=== PATIENT | female | born 1955 | race Caucasian/White ===

== ENCOUNTER 2018-10-09 08:35 | Day surgery (SDC) | payer BC ==
[2018-10-09] MEDS ORDERED: PROPOFOL 200 MG INJ (10:30)
[2018-10-09] MEDS ORDERED: LIDOCAINE 2% (SDV) 5 ML INJ (10:30)
[2018-10-09] MEDS: LIDOCAINE 1% (STERILE-PAK) 30 ML INJ (11:13)
[2018-10-09] MEDS: METHYLPREDNISOLONE ACET 80 MG/ML 1 ML (11:16)
== END 2018-10-09 12:06 | disposition home or self-care (01) ==
LOC: SDS 08:35
DX: M48.061 Spinal stenosis, lumbar region without neurogenic claudication (principal); E78.5 Hyperlipidemia, unspecified; I10 Essential (primary) hypertension
CPT/HCPCS: 62323; 72020; 82962

== ENCOUNTER 2019-01-30 08:27 | Day surgery (SDC) | payer BC ==
[2019-01-30] MEDS ORDERED: PROPOFOL 60 ML (09:22)
[2019-01-30] MEDS ORDERED: LIDOCAINE 2% (SDV) 5 ML INJ (09:23)
[2019-01-30] MEDS ORDERED: ONDANSETRON 4 MG INJ IV (09:30)
[2019-01-30] MEDS ORDERED: HYDROmorphONE 1 MG/5 ML IV SYRINGE IV (09:30)
[2019-01-30] MEDS ORDERED: hydrALAzine 20 MG INJ IV (09:30)
[2019-01-30] MEDS ORDERED: LABETALOL HCL 20MG INJ IV (09:30)
== END 2019-01-30 15:36 | disposition home or self-care (01) ==
LOC: GIL 08:27
DX: Z12.11 Encounter for screening for malignant neoplasm of colon (principal); K29.50 Unspecified chronic gastritis without bleeding; K64.4 Residual hemorrhoidal skin tags; E11.9 Type 2 diabetes mellitus without complications; E78.5 Hyperlipidemia, unspecified; I10 Essential (primary) hypertension
CPT/HCPCS: 43239; 82962; 88305; 88312

== ENCOUNTER 2019-02-18 11:21 | Day surgery (SDC) | payer BC ==
[2019-02-18 12:22] LABS: ADD MAN DIFF? NO
[2019-02-18 12:24] LABS: WHITE BLOOD COUNT 6.5 10^3/ul (4.8-10.8)
[2019-02-18 12:24] LABS: BASOPHIL # 0.1 10^3/ul (0.0-0.1); BASOPHILS % 0.9 % (0.0-2.0); EOSINOPHILS # 0.1 10^3/ul (0.0-0.5); EOSINOPHILS % 1.9 % (0.0-7.0); HEMATOCRIT 40.2 % (37.0-47.0); HEMOGLOBIN 13.2 g/dl (12.0-16.0); LYMPHOCYTES # 2.4 10^3/ul (0.8-2.9); LYMPHOCYTES % 36.5 % (15.0-51.0); MEAN CORPUSCULAR HEMOGLOBIN 28.8 pg (29.0-33.0); MEAN CORPUSCULAR HGB CONC 32.8 g/dl (32.0-37.0); MEAN CORPUSCULAR VOLUME 87.6 fl (82.0-101.0); MEAN PLATELET VOLUME 9.7 fl (7.4-10.4); MONOCYTE # 0.5 10^3/ul (0.3-0.9); NEUTROPHIL # 3.5 10^3/ul (1.6-7.5); NEUTROPHILS % 53.4 % (39.0-77.0); PLATELET COUNT 245 10^3/UL (140-415); RED BLOOD COUNT 4.59 10^6/ul (4.20-5.40); RED CELL DISTRIBUTION WIDTH 12.5 % (11.5-14.5)
[2019-02-18 12:43] LABS: PROTIME 13.3 Sec (11.9-14.9)
[2019-02-18 12:44] LABS: PARTIAL THROMBOPLASTIN TIME 28.6 Sec (23.0-35.0)
[2019-02-18 12:49] LABS: ALANINE AMINOTRANSFERASE 18 IU/L (13-69); ALBUMIN 4.3 g/dl (3.3-4.9); ALBUMIN/GLOBULIN RATIO 1.19; ALKALINE PHOSPHATASE 85 IU/L (42-121); ANION GAP 7 (5-13); ASPARTATE AMINO TRANSFERASE 30 IU/L (15-46); BILIRUBIN,INDIRECT 0.5 mg/dl (0-1.1); BILIRUBIN,TOTAL 0.5 mg/dl (0.2-1.3); BLOOD UREA NITROGEN 17 mg/dl (7-20); CALCIUM 9.3 mg/dl (8.4-10.2); CARBON DIOXIDE 27 mmol/L (21-31); CHLORIDE 108 mmol/L (97-110); CREATININE 0.47 mg/dl (0.44-1.00); Estimated GFR > 60 mL/min (>60); GLUCOSE 117 mg/dl (70-220); SODIUM 142 mmol/L (135-144); TOTAL PROTEIN 7.9 g/dl (6.1-8.1)
[2019-02-18] MEDS ORDERED: ALBUTEROL 0.083% (NEB) 2.5 MG/3 ML AMP HHN (13:30)
[2019-02-18] MEDS ORDERED: hydrALAzine 20 MG INJ IV (13:30)
[2019-02-18] MEDS ORDERED: DIPHENHYDRAMINE 50 MG INJ IV (13:30)
[2019-02-18] MEDS ORDERED: MEPERIDINE 25 MG INJ IV (13:30)
[2019-02-18] MEDS ORDERED: LABETALOL HCL 20MG INJ IV (13:30)
[2019-02-18] MEDS ORDERED: MIDAZOLAM 1 MG/ML 2 ML INJ IV (13:30)
[2019-02-18] MEDS ORDERED: ONDANSETRON 4 MG INJ IV (13:30)
[2019-02-18] MEDS ORDERED: FENTAnyl 50 MCG/ML VIAL IV ×3 (13:30)
[2019-02-18] MEDS ORDERED: OXYCODONE/ACETAMINOPHEN (5/325) TAB PO ×2 (13:30)
[2019-02-18] MEDS ORDERED: EPHEDrine SULFATE 50 MG/5 ML SYG IV (13:30)
[2019-02-18] MEDS ORDERED: TRIMETHOBENZAMIDE 100 MG/ML VIAL IM (13:30)
[2019-02-18] MEDS ORDERED: HYDROmorphONE 1 MG/5 ML IV SYRINGE IV ×3 (13:30)
[2019-02-18] MEDS ORDERED: IPRATROPIUM (NEB) 0.5 MG/2.5 ML AMP HHN (13:30)
[2019-02-18] MEDS ORDERED: MIDAZOLAM 1 MG/ML 2 ML INJ (13:54)
[2019-02-18] MEDS ORDERED: PROPOFOL 20 ML (13:54)
[2019-02-18] MEDS: LIDOCAINE 1% (MPF) 30 ML INJ (14:00)
[2019-02-18] MEDS: METHYLPREDNISOLONE ACET 40 MG/ML 1 ML INJ (14:00)
[2019-02-18] MEDS ORDERED: METHYLPREDNISOLONE ACET 40 MG/ML 1 ML INJ (14:00)
[2019-02-18] MEDS: METHYLPREDNISOLONE ACET 40 MG/ML 5 ML INJ (14:00)
== END 2019-02-18 15:11 | disposition home or self-care (01) ==
LOC: SDS 11:21
DX: M48.061 Spinal stenosis, lumbar region without neurogenic claudication (principal); M54.16 Radiculopathy, lumbar region; M54.30 Sciatica, unspecified side; I10 Essential (primary) hypertension
CPT/HCPCS: 62323; 71045; 72020; 80053; 82962; 85025; 85610; 85730; 93005

== ENCOUNTER 2019-04-21 09:00 | Emergency (ER) | payer BC ==
[2019-04-21] MEDS: LORAZEPAM 1 MG TAB PO (09:57)
[2019-04-21] MEDS: LIDOCAINE/MYLANTA 40 ML BTL PO (09:57)
== END 2019-04-21 12:52 | disposition home or self-care (01) ==
LOC: E/R 09:00
DX: R07.89 Other chest pain (principal); R07.0 Pain in throat; E11.9 Type 2 diabetes mellitus without complications; I10 Essential (primary) hypertension; Z79.84 Long term (current) use of oral hypoglycemic drugs
CPT/HCPCS: 70360; 71045; 93005; 99284-25

== ENCOUNTER 2019-04-22 19:48 | Emergency (ER) | payer BC ==
[2019-04-22] MEDS: LORAZEPAM 1 MG TAB PO (23:04)
[2019-04-22] MEDS: LIDOCAINE/MYLANTA 40 ML BTL PO (23:04)
[2019-04-23] MEDS: PIPER-TAZO 3.375 GM IV (PMX) 100 ML IVPB ×2 (00:22→15:16)
[2019-04-23] MEDS: HYDROmorphONE 1 MG/ML SYG IV (00:27)
[2019-04-23] MEDS: ONDANSETRON 4 MG INJ IV ×2 (00:27→21:17)
[2019-04-23] MEDS: metroNIDAZOLE 500 MG/NS (PMX) 100 ML IVPB (00:49)
[2019-04-23 00:56] LABS: ADD MAN DIFF? NO
[2019-04-23 01:00] LABS: BASOPHIL # 0.1 10^3/ul (0.0-0.1); BASOPHILS % 0.5 % (0.0-2.0); EOSINOPHILS % 0.3 % (0.0-7.0); HEMATOCRIT 43.2 % (37.0-47.0); HEMOGLOBIN 14.1 g/dl (12.0-16.0); LYMPHOCYTES # 2.4 10^3/ul (0.8-2.9); MEAN CORPUSCULAR HEMOGLOBIN 28.8 pg (29.0-33.0); MEAN CORPUSCULAR HGB CONC 32.6 g/dl (32.0-37.0); MEAN CORPUSCULAR VOLUME 88.2 fl (82.0-101.0); MONOCYTES % 7.7 % (0.0-11.0); NEUTROPHIL # 9.7 10^3/ul (1.6-7.5); NEUTROPHILS % 73.1 % (39.0-77.0); PLATELET COUNT 247 10^3/UL (140-415); RED CELL DISTRIBUTION WIDTH 13.1 % (11.5-14.5)
[2019-04-23 01:00] LABS: WHITE BLOOD COUNT 13.2 10^3/ul (4.8-10.8)
[2019-04-23 01:18] LABS: ALANINE AMINOTRANSFERASE 19 IU/L (13-69); ALBUMIN 4.7 g/dl (3.3-4.9); ALKALINE PHOSPHATASE 81 IU/L (42-121); ANION GAP 9 (5-13); ASPARTATE AMINO TRANSFERASE 23 IU/L (15-46); BILIRUBIN,INDIRECT 1.3 mg/dl (0-1.1); BILIRUBIN,TOTAL 1.3 mg/dl (0.2-1.3); BLOOD UREA NITROGEN 16 mg/dl (7-20); CALCIUM 9.7 mg/dl (8.4-10.2); CARBON DIOXIDE 29 mmol/L (21-31); CHLORIDE 102 mmol/L (97-110); CREATININE 0.62 mg/dl (0.44-1.00); Estimated GFR > 60 mL/min (>60); GLUCOSE 148 mg/dl (70-220); LIPASE 28 U/L (23-300); POTASSIUM 3.5 mmol/L (3.5-5.1); SODIUM 140 mmol/L (135-144); TOTAL PROTEIN 8.6 g/dl (6.1-8.1)
[2019-04-23 01:20] LABS: INR 0.93; PARTIAL THROMBOPLASTIN TIME 27.4 Sec (23.0-35.0); PROTIME 12.6 Sec (11.9-14.9)
[2019-04-23] MEDS: HYDROmorphONE 0.5 MG/0.5 ML SYG IV ×2 (13:18→20:08)
[2019-04-23 14:39] LABS: ADD MAN DIFF? NO
[2019-04-23 14:42] LABS: WHITE BLOOD COUNT 13.9 10^3/ul (4.8-10.8)
[2019-04-23 14:42] LABS: BASOPHIL # 0.1 10^3/ul (0.0-0.1); BASOPHILS % 0.4 % (0.0-2.0); EOSINOPHILS % 0.1 % (0.0-7.0); HEMATOCRIT 39.4 % (37.0-47.0); HEMOGLOBIN 13.1 g/dl (12.0-16.0); LYMPHOCYTES # 1.9 10^3/ul (0.8-2.9); LYMPHOCYTES % 13.6 % (15.0-51.0); MEAN CORPUSCULAR HEMOGLOBIN 29.4 pg (29.0-33.0); MEAN CORPUSCULAR HGB CONC 33.2 g/dl (32.0-37.0); MEAN CORPUSCULAR VOLUME 88.3 fl (82.0-101.0); MEAN PLATELET VOLUME 9.7 fl (7.4-10.4); MONOCYTE # 1.1 10^3/ul (0.3-0.9); MONOCYTES % 7.9 % (0.0-11.0); NEUTROPHIL # 10.8 10^3/ul (1.6-7.5); NEUTROPHILS % 77.7 % (39.0-77.0); PLATELET COUNT 235 10^3/UL (140-415); RED BLOOD COUNT 4.46 10^6/ul (4.20-5.40); RED CELL DISTRIBUTION WIDTH 12.9 % (11.5-14.5)
[2019-04-23 15:02] LABS: ANION GAP 8 (5-13); BLOOD UREA NITROGEN 16 mg/dl (7-20); CALCIUM 8.7 mg/dl (8.4-10.2); CARBON DIOXIDE 27 mmol/L (21-31); CHLORIDE 105 mmol/L (97-110); CREATININE 0.54 mg/dl (0.44-1.00); Estimated GFR > 60 mL/min (>60); GLUCOSE 141 mg/dl (70-220); POTASSIUM 3.6 mmol/L (3.5-5.1); SODIUM 140 mmol/L (135-144)
[2019-04-23] MEDS: FLUCONAZOLE 400 MG/NS (PMX) 200 ML IVPB (18:35)
[2019-04-23] MEDS: VANCOMYCIN 1 GM (PMX) 250 ML IVPB (20:28)
[2019-04-24] MEDS: ONDANSETRON 4 MG INJ IV (00:21)
== END 2019-04-24 02:48 | disposition home or self-care (01) ==
LOC: E/R 04-24 02:48
DX: K22.3 Perforation of esophagus (principal); J98.51 Mediastinitis; I10 Essential (primary) hypertension; E11.9 Type 2 diabetes mellitus without complications; R07.9 Chest pain, unspecified; Z79.84 Long term (current) use of oral hypoglycemic drugs
CPT/HCPCS: 36415; 70490; 71045; 71250; 80048; 80053; 83690; 85025; 85610; 85730; 87040-91; 96374; 96375; 96376; 99285-25

== ENCOUNTER 2019-06-09 10:32 | Inpatient (IN) | payer BC ==
[2019-06-09] MEDS ORDERED: DOCUSATE SODIUM 100 MG CAP PO (12:30)
[2019-06-09] MEDS ORDERED: NITROGLYCERIN (SL) 0.4 MG TAB SL (12:30)
[2019-06-09] MEDS ORDERED: ONDANSETRON 4 MG INJ IV (12:30)
[2019-06-09] MEDS ORDERED: morphine 2 MG INJ IV (12:30)
[2019-06-09] MEDS ORDERED: NACL 0.9% 3 ML SYG IV (12:30)
[2019-06-09] MEDS ORDERED: DEXTROSE 50% 50 ML SYRINGE IV ×2 (13:00)
[2019-06-09] MEDS ORDERED: GLUCOSE GEL 15 GRAM TUBE BUCCAL (13:00)
[2019-06-09] MEDS ORDERED: GLUCAGON 1 MG INJ IM (13:00)
[2019-06-09] MEDS ORDERED: GLUCOSE GEL 15 GRAM TUBE PO ×2 (13:00)
[2019-06-09 13:26] LABS: CREATINE KINASE 38 IU/L (23-200)
[2019-06-09 13:32] LABS: D-DIMER 386.27 ng/ml (<460)
[2019-06-09 13:44] LABS: CK INDEX 0.6; CK-MB < 0.22 ng/ml (0.0-2.4); TROPONIN-I < 0.012 ng/ml (0.000-0.120)
[2019-06-09] MEDS: ATENOLOL 25 MG TAB PO (14:43)
[2019-06-09] MEDS: ASPIRIN 81 MG TAB PO (14:43)
[2019-06-09] MEDS: BENAZEPRIL 10 MG TAB PO (14:44)
[2019-06-09] MEDS: ACETAMINOPHEN 325 MG TAB PO (15:00)
[2019-06-09] MEDS: INSULIN ASPART [NOVOLOG] 3 ML PEN SC ×2 (17:55→20:59)
[2019-06-09 19:54] LABS: CREATINE KINASE 31 IU/L (23-200)
[2019-06-09 20:04] LABS: CK INDEX 0.8; CK-MB 0.25 ng/ml (0.0-2.4)
[2019-06-09 20:09] LABS: TROPONIN-I < 0.012 ng/ml (0.000-0.120)
[2019-06-09] MEDS: ATORVASTATIN 10 MG TAB PO (20:58)
[2019-06-09] MEDS ORDERED: NON-FORMULARY/PATIENT OWN MED (Lovastatin* 20 MG) PO (21:00)
[2019-06-10] MEDS: ACCU-CHEK XX (02:00)
[2019-06-10] MEDS: PANTOPRAZOLE (EC) 40 MG TAB PO (06:32)
[2019-06-10 07:15] LABS: ADD MAN DIFF? NO
[2019-06-10 07:20] LABS: BASOPHIL # 0.1 10^3/ul (0.0-0.1); BASOPHILS % 1.1 % (0.0-2.0); EOSINOPHILS # 0.3 10^3/ul (0.0-0.5); EOSINOPHILS % 3.3 % (0.0-7.0); HEMATOCRIT 41.9 % (37.0-47.0); HEMOGLOBIN 13.5 g/dl (12.0-16.0); MEAN CORPUSCULAR HEMOGLOBIN 29.5 pg (29.0-33.0); MEAN CORPUSCULAR HGB CONC 32.2 g/dl (32.0-37.0); MEAN CORPUSCULAR VOLUME 91.5 fl (82.0-101.0); MEAN PLATELET VOLUME 9.9 fl (7.4-10.4); MONOCYTE # 0.6 10^3/ul (0.3-0.9); MONOCYTES % 7.5 % (0.0-11.0); NEUTROPHIL # 3.6 10^3/ul (1.6-7.5); NEUTROPHILS % 47.7 % (39.0-77.0); PLATELET COUNT 277 10^3/UL (140-415); RED BLOOD COUNT 4.58 10^6/ul (4.20-5.40); RED CELL DISTRIBUTION WIDTH 13.3 % (11.5-14.5)
[2019-06-10 07:20] LABS: WHITE BLOOD COUNT 7.5 10^3/ul (4.8-10.8)
[2019-06-10 07:44] LABS: ANION GAP 11 (5-13); BLOOD UREA NITROGEN 18 mg/dl (7-20); CALCIUM 9.9 mg/dl (8.4-10.2); CARBON DIOXIDE 26 mmol/L (21-31); CHLORIDE 107 mmol/L (97-110); CHOL/HDL RATIO 5.5 RATIO; CHOLESTEROL 183 mg/dl (100-200); CREATININE 0.67 mg/dl (0.44-1.00); Estimated GFR > 60 mL/min (>60); GLUCOSE 126 mg/dl (70-220); HDL CHOLESTEROL 33 mg/dl (35-98); LDL CHOLESTEROL,CALCULATED 96 mg/dl; POTASSIUM 4.3 mmol/L (3.5-5.1); SODIUM 144 mmol/L (135-144); TRIGLYCERIDES 269 mg/dl (0-149)
[2019-06-10] MEDS: INSULIN ASPART [NOVOLOG] 3 ML PEN SC ×3 (07:54→17:55)
[2019-06-10 08:01] LABS: FREE THYROXINE INDEX (Calc) 1.91 ug/ml (0.65-3.89); T3 UPTAKE 32.9 % (23.5-40.5); T4 (THYROXINE) 5.8 ug/dl (5.5-11.0)
[2019-06-10 08:07] LABS: HEMOGLOBIN A1C 5.6 % (0-5.9)
[2019-06-10] MEDS: ASPIRIN 81 MG TAB PO (08:33)
[2019-06-10] MEDS: BENAZEPRIL 10 MG TAB PO (09:00)
[2019-06-10] MEDS: ATENOLOL 25 MG TAB PO (09:00)
[2019-06-10] MEDS: REGADENOSON 0.4 MG/5 ML SYG (09:52)
== END 2019-06-10 17:56 | disposition home or self-care (01) | DRG 313 ==
LOC: TEL 10:32
DX: R07.89 Other chest pain (principal); E11.9 Type 2 diabetes mellitus without complications; I10 Essential (primary) hypertension; E87.6 Hypokalemia; E78.5 Hyperlipidemia, unspecified; Z79.82 Long term (current) use of aspirin; Z79.4 Long term (current) use of insulin
CPT/HCPCS: 78452; 80048; 80061; 82550; 82553; 82962; 83036; 84436; 84479; 84484; 85025; 85378; 93005; 93017; 93306; 93970